=== PATIENT | male | born 1980 | race American Indian/Alaskan Native ===

== ENCOUNTER 2017-02-20 23:20 | Emergency (ER) | payer OTHER ==
[2017-02-21 00:03] VITALS: BP 137/99
[2017-02-21 01:09] LABS: Hematocrit 46.9 % (35.5-45.6); Hemoglobin 15.6 gm/dl (11.8-15.2); Mean Corpuscular HGB Conc 33 % (32-34); Mean Corpuscular Hemoglobin 29 pg (28-32); Mean Corpuscular Volume 86 fl (84-94); Platelet Count 338 K/mm3 (140-440); Red Blood Count 5.48 M/mm3 (3.65-5.03); Red Cell Distribution Width 16.4 % (13.2-15.2); White Blood Count 9.5 K/mm3 (4.5-11.0)
[2017-02-21 01:46] LABS: Basophils % (Manual) 0 % (0.0-1.8); Blastocytes % (Manual) 0 %
[2017-02-21 01:47] LABS: Diff Status Complete; Giant Platelets Few; Platelet Estimate Consistent w Auto
[2017-02-21 02:40] LABS: Anion Gap 25 mmol/L; Blood Urea Nitrogen 12 mg/dL (9-20); Calcium 9.2 mg/dL (8.4-10.2); Carbon Dioxide 22 mmol/L (22-30); Chloride 93.8 mmol/L (98-107); Glucose 99 mg/dL (75-100); Sodium 138 mmol/L (137-145)
[2017-02-21 03:07] LABS: Bilirubin,Urine MOD (Negative); Blood,Urine NEG (Negative); Ketones,Urine TR mg/dL (Negative); Leukocyte Esterase,Urine NEG (Negative); Mucus,Urine 3+ /HPF; Nitrite,Urine NEG (Negative)
--- NOTE | 2017-02-21 07:23 | XRay Report ---
CHEST 2 VIEWS INDICATION: Difficulty breathing. COMPARISON: None similar at this institution. FINDINGS: PA and lateral chest radiographs demonstrate normal cardiomediastinal silhouette. Clear lungs. Intact bones. CONCLUSION: No acute disease in the chest. Thank you for the opportunity to participate in this patient's care.
== END 2017-02-21 01:00 | disposition left against medical advice (07) ==
LOC: ED 23:20
DX: R07.9 Chest pain, unspecified (principal); R42 Dizziness and giddiness; Z53.21 Procedure and treatment not carried out due to patient leaving prior to being seen by health care provider
CPT/HCPCS: 36415; 71020; 80048; 81001; 84484; 85007; 85025; 93005; 93010

== ENCOUNTER 2017-07-31 00:37 | Emergency (ER) | payer OTHER ==
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
[2017-07-31 04:56] VITALS: BP 157/88
== END 2017-07-31 03:39 | disposition home or self-care (01) ==
LOC: ED 00:37
DX: T74.21XA Adult sexual abuse, confirmed, initial encounter (principal); Y08.89XA Assault by other specified means, initial encounter; Y93.9 Activity, unspecified; Y92.9 Unspecified place or not applicable; Y99.9 Unspecified external cause status; I10 Essential (primary) hypertension
CPT/HCPCS: 99282